=== PATIENT | female | born 1980 | race African-American/Black ===

== ENCOUNTER 2023-09-16 18:03 | Emergency (ER) | payer SELFPAY ==
[2023-09-16 18:09] VITALS: BP 205/121
--- NOTE | 2023-09-16 19:35 | ED.MUSCINJ ---
HPI-Injury
General
Chief Complaint: Musculo-Skeletal Complaint
Source: patient
Exam Limitations: none
Time Seen by Provider: 09/16/23 19:19
History of Present Illness-Injury
Initial Injury comments:
43-year-old female [id number] presents complaining of pain to the right thumb and index finger with occasional pins and needle sensation or stabbing discomfort. She at times feels as though there is a foreign body in her hand. No known
injury. She works as a home health nurse. She denies associated elbow pain. No other complaints at this time.
Phy Exam
Physical Exam
Physical Exam:
General: Well appearing female NAD
HEENT: NC/AT
Musculoskeletal exam: Patient is tender over the thenar eminence of the right thumb and the base of the index finger right hand. No deformity. Good range of motion. Vascular: 2+ radial pulse right wrist
Neurologic exam: Positive Tinel's over the carpal tunnel on the right hand. Good strength to the right hand
Skin: Warm no rash or lesions
Injury Course
Orders/Labs/Results
Orders:
Orders
09/16/23 18:17
Hand, Right 3 View [CR Hand - Right Min 3 Views] Urgent
Comment: pt concerned for foreign body
Reason For Exam: pain in thumb and index finger,
09/16/23 19:50
Electrocardiogram (*1) Urgent
Reason for Study: Other
Other Reason for Exam: HTN
EKG- Treatment ONCE
Complete Blood Count/With Diff Urgent
Comprehensive Metabolic Panel Urgent
MDM/Problems Addressed
Differential Diagnosis Includes:
Right hand pain. She also complains of paresthesias. Consider sprain versus fracture versus carpal tunnel.
X-rays of the right hand ordered through triage are negative for acute fracture or foreign body. Recommend the patient continue to wear her braces for her carpal tunnel. Will refer to ortho for follow up.
*Critical Care Note
Total Time (30-74mins, 75-104mins- exclusive of procedures): Not Applicable
Update Note
Update Note:
Recheck blood pressure is 181/111. Recommended blood work to check kidney functions and EKG. Patient is declining this secondary to the potential cost. She states she cannot afford this test. She will follow-up with her doctor that she has been
seeing and will restart her blood pressure medication that she has been on with them. She wishes to go home at this point. I did also recommend EKG which she declined. I explained and she was aware of the risks of persistently elevated blood
pressure as high as it is for her including risk of stroke disability or . She understood this. Her hand symptoms are more consistent with carpal tunnel syndrome. She will continue wearing her splint
ED Attending Note
-
Portions of this chart may have been created with voice recognition software.� Occasional wrong word or��sound alike� substitutions may have occurred due to the inherent limitations of voice recognition software.
Discharge Plan
Departure
Patient Disposition: Home (Routine Discharge)
Date of Disposition: 09/16/23
Time of Disposition: 20:09
Patient with high blood pressure during this ER visit?: No
Discharge Problem:
Hand pain, right, Hypertension
Instructions: BLOOD PRESSURE
Prescriptions:
New
hydrochlorothiazide 25 mg tablet
25 mg PO DAILY Qty: 30 0RF
amlodipine 5 mg tablet
5 mg PO DAILY Qty: 30 0RF
prednisone 20 mg tablet
40 mg PO DAILY 5 Days Qty: 10 0RF
Referrals:
NONE,* [Family Provider] -
Activity Restrictions/Additional Instructions:
Please follow-up with primary doctor for recheck of your high blood pressure. Return here for any worsening symptoms. Continue to wear a brace for your wrist. A prescription for blood pressure medicine was sent to your pharmacy.
Interventions
Interventions:
*Risk Screen - Suicide Last Done: 09/16/23 19:15
*General Assessment Last Done: 09/16/23 19:15
*Neglect/Abuse Screening Last Done: 09/16/23 19:15
*ED COVID-19 Vaccine History Last Done: 09/16/23 19:15
ED-Musculoskeletal Assessment Last Done: 09/16/23 19:15
Discharge Date and Time
Print Language: DIVEHI
[2023-09-16 19:53] VITALS: BP 181/111
== END 2023-09-16 20:21 | disposition home or self-care (01) ==
LOC: EMR 18:03
PROVIDERS: EMERGENCY PHYSICIAN Emergency Medicine
DX: M79.641 Pain in right hand (principal); I10 Essential (primary) hypertension
CPT/HCPCS: 99283; 73130

== ENCOUNTER 2023-09-30 23:10 | Inpatient (IN) | payer OTHER, SELFPAY ==
[2023-09-30 17:40] VITALS: BP 158/116
--- NOTE | 2023-09-30 18:19 | ED.GENMED ---
History of Present Illness
General
Chief Complaint: Breathing Problem
Source: patient
Exam Limitations: none
Time Seen by Provider: 09/30/23 17:59
History of Present Illness
History of Present Illness:
This is a 43 year old female that comes in with c/o blurred vision and dizziness. States that for the past 4-5 days she has had blurred vision. States that her legs feel sore and it is hard for her to walk. State that she can only walk short
distances. States that her heart rate has also been elevated. States that she has been SOB and she has vomited with the dizziness. Denies any fever, chills, chest pain, abd pain, nausea, diarrhea, headache, urinary burning.
Past History
Past History
ED Past Medical History: HTN; Negative Asthma, Hypercholesterolemia or NIDDM
ED Past Surgical History: None
Social History
Tobacco: Smoker
Alcohol: None
Personal: Single
Living: alone
Review of Systems
Review of Systems
All Other Systems: ROS reviewed and negative except as documented in HPI and ROS
Constitutional: Reports no symptoms; Denies fever or chills
EENT: Reports other (Blurred vision)
Respiratory: Reports trouble breathing; Denies cough
Cardiac: Reports no symptoms; Denies chest pain
ABD/GI: Reports vomiting; Denies abdominal pain, nausea or diarrhea
: Reports no symptoms; Denies dysuria, frequency or urgency
Musculoskeletal: Reports no symptoms
Skin: Reports no symptoms
Neurological: Reports dizzy; Denies headache
Psychiatric: Reports no symptoms
Phy Exam
General Physical Exam
General Presentation: well appearing and no apparent distress
General age: appears stated age
General Skin: warm and dry
General Habitus: obese
General Mental: alert
General Hydration: dry mucous membranes
ENT Exam
ENT Exam: TM's normal, pharynx normal and neck supple
Eye Exam
Eye Exam: EOMI
Cardiovascular Exam
Cardiovascular Exam: regular rate/rhythm, no edema, no murmur and normal peripheral pulses
Pulmonary Exam
Pulmonary Exam: lungs clear, no respiratory distress, no rales, chest non tender, no crackles, no rhonchi, no wheezing and no cough
Gastrointestinal Exam
Gastrointestinal Exam: soft, no organomegaly, no pulsatile mass, non distended, tender (Slight lower abd tenderness with palpation) and other (Hypoactive bowel sounds)
Musculoskeletal Exam
Musculoskeletal Exam: full ROM and no edema
Skin Exam
Skin Exam: normal color, warm/dry, no rash and no petechia
Psychiatric Exam
Psychiatric Exam: normal mood/affect
Course
Orders/Labs/Results
Orders:
Orders
09/30/23
Complete Blood Count/With Diff Urgent
Comprehensive Metabolic Panel Urgent
D-Dimer Urgent
TSH Reflex To Free T4 Urgent
Comment: ADD ON
Troponin I Urgent
09/30/23 Dinner
1800 calorie (15 carb) Diabetic
At Your Request: Full Participation
Does patient need a safe tray?: No
09/30/23 17:43
Electrocardiogram (*1) Urgent
Reason for Study: Shortness of Breath
EKG- Treatment ONCE
09/30/23 18:07
Ondansetron Injectable [Zofran] 4 mg IV NOW STA
09/30/23 18:08
CT Head W/o Iv Contrast Urgent
Comment:
Reason For Exam: blurred vision, dizziness
09/30/23 18:27
Amlodipine [Norvasc] 5 mg PO NOW STA
09/30/23 20:55
METFORMIN HCl [Glucophage] 500 mg PO NOW STA
09/30/23 22:00
Flush (0.9% Sodium Chloride) [Flush (Nss)] See Dose Instructions IV PER PROTOCOL
09/30/23 22:35
Admit/Transfer Patient As Directed
Co-Sign Provider:
Level of Care: Inpatient admission
Assign to:: Medical/Surgical
Physician / Group: ky moore
Diagnosis: new onset dm, pseudohyponatremia
Reason for Hospitalization: new onset dm, pseudohyponatremia
Expected length of stay greater than two midnights?: Yes
ELOS- Estimated Length of Stay in days: 2
I certify the patient meets the requirements for IP care: Yes
Code Status As Directed
Resuscitation Status: Full Code
09/30/23 22:38
Add On- LAB Urgent
Tests Added?: tsh with free t4
PRN Pain Medication Management As Directed
May give lesser potent ordered pain med per pt: Yes
preference::
Protocol:: Medication orders for pain may be administered in a
manner that supports deferring to patient preference
when the pt is:
- Requesting an ordered lesser potent pain medication.
Least to most potent pain medications are defined
as: acetaminophen < NSAID < tramadol < opioids
(morphine, oxycodone, hydromorphone).
- Requesting a lesser dose of the same medication IF
ORDERED.
- Requesting a less intrusive route of administration
if both routes are prescribed by the provider (PO <
IV).
09/30/23 22:48
Urinalysis Reflex To Culture Urgent
Date Specimen was Collected: 09/30/23
Time Specimen was Collected: 22:46
09/30/23 23:56
0.9% Sodium Chloride 1000 ml [Nss] 1,000 ml IV 100 mls/hr
Acetaminophen [Tylenol] 650 mg PO Q4HPRN PRN
Dextrose 50%-Water [Dextrose 50% Syringe] 12.5 grams IV [id number] PRN
Glucagon [GlucaGen] 1 mg IM PRN PRN
Insulin Glargine Lantus [Lantus] 10 units Subcutaneous Insulin Syringe [Syringe-Insulin] 0 unit SC ONCE
09/30/23 23:56
Case Management Consult ONCE
Case Management Consult: Discharge Planning
Comment: pt has no active insurance
Diabetes Education Consult Routine
Reason for Consult: Monitor Instruction
Other reason for consult: insulin instruction
Newly Diagnosed?: Yes
Monitor Needed?: Yes
Activity As Directed
Activity Level: As Tolerated
Bedside Glucose Monitoring As Directed
Frequency: AC&HS
Additional Instructions:: Change to q6h if pt on TPN, tube feeding or not eating
Pneumatic Compression Sleeves As Directed
Type: Knee high
Vital Signs As Directed
Frequency: Per unit guidelines
Pt Eval And Treat Routine
Activity Level: As Tolerated
DX Deep Vein Thrombosis Video Routine
10/01/23 06:00
Complete Blood Count/With Diff IN AM
Comprehensive Metabolic Panel IN AM
Glycohemoglobin (HgbA1c) IN AM
Lipid Profile [Cardiovascular Evaluation] IN AM
10/01/23 07:30
Insulin Aspart Corrective Low [Novolog Flexpen-Low Resistance] See Protocol SC AC
10/01/23 08:00
Amlodipine [Norvasc] 5 mg PO DAILY
Abnormal Lab Results
09/30/23
22:48
Urine Ketones 2+ A
(Negative)
Urine Bilirubin 1+ A
(Negative)
Urine Glucose 3+ A
(Negative)
Vital Signs
Initial and Last Documented VS:
Initial Vital Signs
Temp Pulse Resp BP Pulse Ox
98.7 F 130 18 158/116 97
09/30/23 17:40 09/30/23 17:40 09/30/23 17:40 09/30/23 17:40 09/30/23 17:40
Last Documented Vital Signs
Temp Pulse Resp BP Pulse Ox
98.2 F 119 17 146/96 97
10/01/23 00:06 10/01/23 00:06 10/01/23 00:06 10/01/23 00:06 10/01/23 00:06
MDM/Problems Addressed
Differential Diagnosis Includes:
visual changes due to aging, PE, Hypertension
MDM/Problems Addressed:
This is a 43 year old female that comes in with c/o blurred vision, and her heart rate going up and down. States that she is SOB and can only walk short distances.
Will check labs, Chest x-ray. CT head. Patient only took her HCTZ today and has not taken her Amlodipine. Will have patient take her medication.
back into see patient. Explained that her blood work shows that her sodium is slightly low and her glucose is elevated. Explained that she is most likely diabetic. Will start patient on Metformin and encouraged patient to take both of her BP
medications. Patient BP at this time is 132/74. Patient to also follow up with the eye doctor for evaluation. Patient to return with any concerns.
Patient then tells the nurse that she doesn't have insurance and will not be able to follow up with the PCP. Will admit patient due to Hyperglycemia and Hyponatremia. Patient can then see case management and get into the [facility]
Chronic conditions affecting care: HTN
Acute Exacerbation and/or Progression of Chronic Illness: HTN
*Radiology
Radiology exam reviewed: radiology read reviewed (Ct head-There is a 8mm metallic density within the left paramedian parietal bone, extending to the inner table, with associated streak artifact. The adjacent soft tissues appears unremarkable,
favoring chronic process. Otherwise, no evidence of acute intracranial abnormality. )
*Pulse Oximetry
Patient hypoxic: no
*EKG
Interpreted by ED Provider?: Yes
Heart Rate: 120
Rate: tachycardiac
Rhythm: sinus tachycardia
[place]: left axis deviation
Interval: normal interval
QRS Pattern: normal QRS
Ischemia: no ischemia
*Demi Chef Interpretation
Rate: tachycardiac
Heart Rate: 108
Rhythm: sinus tachycardia
*Critical Care Note
Total Time (30-74mins, 75-104mins- exclusive of procedures): Not Applicable
ED Attending Note
-
Portions of this chart may have been created with voice recognition software.� Occasional wrong word or��sound alike� substitutions may have occurred due to the inherent limitations of voice recognition software.
Discharge Plan
Departure
Patient Disposition: Admit
Date of Disposition: 09/30/23
Time of Disposition: 20:57
Admit to: Med/Surg
Presentation/result/management discussed w/ accepting MD/DO: Hospitalist
Patient with high blood pressure during this ER visit?: Yes
Condition: Good
Covid-19: Not Applicable
Discharge Problem:
Acute hyperglycemia, Acute hyponatremia, New Onset diabetes
Interventions
Interventions:
*Risk Screen - Suicide Last Done: 10/01/23 00:07
*General Assessment Last Done: 09/30/23 17:40
*Neglect/Abuse Screening Last Done: 10/01/23 00:07
ED- Fall Risk Assessment Last Done: 09/30/23 18:07
*ED COVID-19 Vaccine History Last Done: 09/30/23 17:40
*Nursing Disposition Last Done: 10/01/23 00:07
ED- Cardiac Assessment Last Done: 09/30/23 18:07
ED- Pulmonary Assessment Last Done: 09/30/23 18:07
Discharge Date and Time
Discharge Date/Time: 10/01/23 00:07
[2023-09-30 18:53] LABS: % Basophils 0.2 % (0-2); % Eosinophils 1.2 % (0-6); % Immature Granulocytes 0.8 % (0-0.5); % Monocytes 8.9 % (1.7-9.3); % Neutrophils 63.9 % (42.2-75.2); Absolute Eosinophils 0.1 10^3/uL (0-0.7); Absolute Immature Granulocytes 0.1 10^3/uL (0-0.05); Absolute Lymphocytes 2.5 10^3/uL (1.2-3.4); Absolute Monocytes 0.9 10^3/uL (0.1-0.6); Absolute Neutrophils 6.4 10^3/uL (1.4-6.5); Hematocrit 39.5 % (37.0-47.0); Hemoglobin 14.5 g/dL (12.0-16.0); Mean Corp Hgb Conc. 36.7 g/dL (33.0-37.0); Mean Corpuscular Hgb 30.4 pg (27.0-31.0); Mean Corpuscular Volume 82.8 fL (81.0-99.0); Mean Platelet Volume 9.4 fL (7.4-10.4); Nucleated Red Blood Cells % 0 %; Platelet Count 437 10^3/uL (130-400); Red Blood Cell Count 4.77 10^6/uL (4.20-5.40); Red Cell Dist. Width 11.9 % (11.5-14.5); White Blood Cell Count 10.1 10^3/uL (4.8-10.8)
[2023-09-30] MEDS: NORVASC 5 MG PO (19:00)
[2023-09-30] MEDS: ZOFRAN 4 MG IV (19:00)
[2023-09-30 19:02] VITALS: BP 150/91
[2023-09-30 19:06] LABS: ALT (SGPT) 18 U/L (0-35); AST (SGOT) 15 U/L (14-36); Albumin 4.3 g/dl (3.5-5.0); Alkaline Phosphatase 121 U/L (38-126); Blood Urea Nitrogen 20 mg/dl (7-17); Calcium 10.3 mg/dl (8.4-10.2); Carbon Dioxide 24 mmol/L (22-30); Chloride 96 mmol/L (98-107); Glucose 333 mg/dl (70-99); Potassium 3.7 mmol/L (3.5-5.1); Sodium 129 mmol/L (135-145); Total Bilirubin 0.5 mg/dl (0.2-1.3); eGFR > 60.00
[2023-09-30 19:09] LABS: D-Dimer < 0.27 ug/mlFEU (0.00-0.50)
[2023-09-30 19:18] LABS: Troponin I < 0.012 ng/ml
[2023-09-30 20:00] VITALS: BP 132/74
[2023-09-30 21:00] VITALS: BP 127/91
[2023-09-30] MEDS: GLUCOPHAGE 500 MG PO (21:07)
--- NOTE | 2023-09-30 22:04 | HPS.HSE ---
Family Physician
-
Family Physician: * NONE
Chief Complaint
-
Dizziness, blurred vision, nausea
History of Present Illness
43-year-old female complaining of blurred vision with dizziness over the past 4 to 5 days and difficulty walking. She also feels short of breath nauseous and has vomited. She denies fever, chills, chest pain, palpitations, abdominal pain,
diarrhea, urinary symptoms. Patient reports she drinks lots of soda during the day. She did recently take 40 mg prednisone daily x 5 days from 09/15 to 09/21/2023 for right hand pain mother is complications of diabetes, CVA Sister also
history with diabetes she is past medical history of hypertension, active smoker, obesity.
Medical History
Past Medical History
Past Medical History: Reports Other
Additional Past Medical History:
Hypertension
Nicotine abuse
Obesity
Past Surgical History: Reports None
Social History
Tobacco: Smoker
Alcohol: Occasional
Drug: None
Personal: Single
Living: With Roomate
Employment: Employed (Healthcare aide)
Family History
Family History: Other (Mother DM2, CVA, HTN, sister living history DM2)
Allergies / Home Medications
Allergies reflects when Allergies were last updated in [employer].
Home Medications with original date entered in [employer]
Allergy/Medication List:
Allergies
Allergy/AdvReac Type Severity Reaction Status Date / Time
cat dander Allergy Itching Verified 09/30/23 17:43
Home Medications
amlodipine 5 mg tablet 5 mg PO DAILY #30 tabs 09/16/23
hydrochlorothiazide 25 mg tablet 25 mg PO DAILY #30 tabs 09/16/23
Review of Systems
-
History Source: Patient
A 12 point ROS was completed and negative except as noted: Yes
Constitutional: Denies Fever or Chills
EENT: Reports Other (Blurred vision); Denies Sore Throat
Respiratory: Denies Cough or Trouble Breathing
Cardiac: Denies Chest Pain, Diaphoresis, Palpitations or Syncope
Abdomen/GI: Reports Nausea; Denies Abdominal Pain, Vomiting, Diarrhea, Constipated, Bloody Stools or Black Stools
: Denies Dysuria, Frequency, Flank Pain, Incontinence, Difficulty Voiding or Urgency
Musculoskeletal: Denies Joint Pain or Edema
Skin: Denies Itching or Rash
Neurological: Reports Dizzy; Denies Headache or Weakness
Endocrine: Reports No Symptoms
Hematologic/Lymphatic: Reports No Symptoms
Psych: Reports Calm
Physical Exam
Vital Signs
Vital Signs
Temp Pulse Resp BP Pulse Ox
98.7 F 108 18 127/91 98
09/30/23 17:40 09/30/23 21:00 09/30/23 17:40 09/30/23 21:00 09/30/23 21:00
Physical Exam
General: Comfortable and Conversant; No Pain, Fever or Chills
HEENT: NormoCephalic, Anicteric, Moist mucous membranes, PERRLA, Keo Conjunctivae and No Ptosis
Respiratory: Clear; No Wheezes, Rales or Rhonchi
Cardiac: S1/S2 and Regular Rhythm; No Murmur, Rub, Gallop or Peripheral Edema
Breast: Deferred by me
GI: Soft, Non Tender, Non Distended, Normal Bowel Sounds and No Hepatosplenomegaly
Rectal: Deferred by Provider
Genito-urinary: Deferred by me
Musculoskeletal: No Clubbing, No Cyanosis and No Edema
Skin: Warm and Dry; No Rash
Neuro: AO x 3, No Motor Deficits, Nonfocal/grossly intact, Cranial Nerves Intact and No Sensory Deficits; No Slurred Speech, Facial Droop or Tremors
Psych: Calm
Laboratory Results
-
09/30/23 Unknown
09/30/23 Unknown
Laboratory Results
Total Bilirubin 0.5 mg/dl (0.2-1.3) 09/30/23 Unknown
AST 15 U/L (14-36) 09/30/23 Unknown
ALT 18 U/L (0-35) 09/30/23 Unknown
Alkaline Phosphatase 121 U/L (38-126) 09/30/23 Unknown
Troponin I < 0.012 ng/ml 09/30/23 Unknown
Data Reviewed
-
Lab Data: Labs Reviewed by me
Impression/Plan
-
Impression/plan:
Admit to MedSurg
#New onset DM2 symptomatic
Symptoms of dizziness, blurred vision and nausea 4 to 5 days
BS 333
pt given Metformin 500 mg in Er
-IV NSS 100 cc/hr , given 1 liter in ER
-Accu-Cheks with SSI, check HgbA1c
-Consult elementary educator
-Patient counseled on diabetic diet does not have insurance but advised where to get cheap glucose monitor
-Will give 10 units Lantus subcu now
-Patient will need to discuss with case management prices regarding different types of insulin due to no insurance
#Pseudohyponatremia in setting of hyperglycemia
NA 129
Will follow BMP as glucose is corrected
- check tsh with free t4
-IV NSS
#Sinus tachycardia secondary to hyperglycemia/volume depletion
EKG sinus tach 120 bpm, QTc 463 MS
#HTN�benign
BP 127/91
-Continue amlodipine 5 mg daily
-Hold HCTZ 25 mg daily
#Obesity due to excess calorie consumption
Weight loss recommended
1800 ADA diabetic diet
DVT prophylaxis
SCDs
Full code
[2023-09-30 22:56] LABS: Urine Albumin Trace (Neg - Trace); Urine Bilirubin 1+ (Negative); Urine Character Slightly Cloudy (Clear); Urine Color Yellow; Urine Glucose 3+ (Negative); Urine Ketone 2+ (Negative); Urine Leukocyte Negative (Negative); Urine Nitrite Negative (Negative); Urine Occult Blood Negative (Negative); Urine Urobilinogen Negative (Neg - 1+)
--- NOTE | 2023-09-30 22:56 | W.PN.UPDATE ---
Update Note
Progress Note Update
I saw and examined the patient.
The SENIOR LINUX UNIX ADMINISTRATOR's (Guera Bradley) note was reviewed and I agree with the note with additions as below:
This is a 43yo F with PMH HTN, Tobacco Abuse, Obesity who presents to ER with complaint of blurred vision, dizziness, nausea and intermittent vomitting. Endorses mild increase in thirst and relatively chronic urinary frequency. Pt also notes
neuropathic pain to b/l lower extremities. Otherwise denies fever, chills, chest pain, palps, wheezing, cough, sob, abd pain, n/v/d,c dysuria, calf or leg pain.
ER course: Pt presents HR 114, BP 127/91 other V.S.S. Na 129, BUN/Cr 20/1.0, BG 333, LFTs wnl, TSH pending. Trop <0.012, Dimer wnl. CT brain: 8 mm metallic density within the left paramedian parietal bone, extending to the inner table, with
associated streak artifact. The adjacent soft tissues appears unremarkable, favoring chronic process. Otherwise, no evidence of acute intracranial abnormality. S/P metformin 500mg PO, 4mg IV zofran, and Amlodipine 5mg in ER. Pt reporting lack of
insurance thus admission for diabetic specialist. S/P 10mg Lantus with SSI/accuchecks initiated.
SHx: skin lesion resection as a child
SocHx: 1/2 PPD smoker x 20 yrs, Denies etoh/drug use
FHx: Sister with DM. mother wtih DM and CVA
Physical Exam
Gen: Awake and Alert, Answering questions without difficulty
HEENT: NC/AT, MMM, Neck supple
Cardio: +tachy, regular, +S1/S2, No m/r/g
Pulm: CTA b/l, no w/r/r
GI: obese, soft/nt/nd, +BS
: No Pérez, No CVA tenderness
MSK/EXT: all 4 extremeties present. No LE edema.
Neuro: Pupils 3mm equal and reactive. Tongue midline. Limited peripheral vision b/l,symmetric. Unable to read paperwork 2.5 feet away. MSK 5/5 throughout. No sensation deficits of LE noted.
Psych: Pleasant, Normal affect
A/P:
New Onset DM2
- BG 333 on admission. Symptoms of nausea, vomitting, blurred vision, neuropathy, mild increased thirst, dizziness
- Check A1C
- Ordered 10 u Lantus tonight. SSI/accuchecks
- S/P Metformin 500mg in ER. Continue BID
- Continue IVF
- Case Management consult, Pt has no insurance. DM nurse educator consult.
Hyponatremia
- Na 129 on admission. Largely wnl correcting for pseudohyponatremia
- HCTZ held. Check TSH
- Continue IVF and trend.
Sinus Tachycardia
- Likely in setting of volume depletion. Dimer wnl. Trop wnl.
- ST @ 120bpm, No acute ischemic changes, QTC 463ms.
- Continue IVF and trend for improvement.
HTN - Mildly hypertensive on admission. S/P 5mg Amlodipine daily, will continue. Holdin HCTZ in setting of hyponatremia also noting hyperglycemia side effect.
Obesity - Obtain Height/Wt for appropriate BMI calculation. Continue to encourage wt loss.
Tobacco Abuse - 1/2 PPD smoker x 20 yrs, declines nicotine patch at this time. Cessation enouraged.
Diet: Diabetic
DVT PPx: SCDs
Code Status: Full
[2023-09-30 23:46] LABS: TSH Reflex To Free T4 1.01 uIU/ml (0.47-4.68)
[2023-10-01 00:06] VITALS: BP 146/96; BMI 40.5
[2023-10-01 00:22] LABS: Glucose - Point of Care 347 mg/dl (70-99)
[2023-10-01] MEDS: LANTUS 0.1 UNITS SC (00:36)
[2023-10-01] MEDS: NSS 1000 IV ×3 (00:37→20:10)
--- NOTE | 2023-10-01 01:44 | PTCARENOTE ---
Pt received from KIM NOBLES able to make her needs known. Pt educated about insulin lantus & side effects. Blood sugar checks.Pt oriented to room & call musa in reach.Plan of care continued.
[2023-10-01 07:13] LABS: % Basophils 0.3 % (0-2); % Eosinophils 1.7 % (0-6); % Lymphocytes 26.3 % (20.5-51.1); % Monocytes 8.8 % (1.7-9.3); % Neutrophils 61.9 % (42.2-75.2); Absolute Eosinophils 0.2 10^3/uL (0-0.7); Absolute Immature Granulocytes 0.1 10^3/uL (0-0.05); Absolute Lymphocytes 2.9 10^3/uL (1.2-3.4); Absolute Neutrophils 6.8 10^3/uL (1.4-6.5); Hematocrit 38.2 % (37.0-47.0); Hemoglobin 13.8 g/dL (12.0-16.0); Mean Corp Hgb Conc. 36.1 g/dL (33.0-37.0); Mean Corpuscular Hgb 30.7 pg (27.0-31.0); Mean Corpuscular Volume 84.9 fL (81.0-99.0); Nucleated Red Blood Cells % 0 %
[2023-10-01 07:17] LABS: ALT (SGPT) 15 U/L (0-35); AST (SGOT) 14 U/L (14-36); Albumin 3.9 g/dl (3.5-5.0); Alkaline Phosphatase 104 U/L (38-126); Blood Urea Nitrogen 22 mg/dl (7-17); Calcium 9.3 mg/dl (8.4-10.2); Carbon Dioxide 22 mmol/L (22-30); Chloride 96 mmol/L (98-107); Estimated Creatinine Clearance 86 ml/min; Glucose 352 mg/dl (70-99); HDL Cholesterol 44 mg/dl; LDL Cholesterol, Calculated 203 mg/dl; Potassium 3.8 mmol/L (3.5-5.1); Sodium 129 mmol/L (135-145); Total Bilirubin 0.5 mg/dl (0.2-1.3); Total Cholesterol 310 mg/dl (50-199); Total Protein 6.4 g/dl (6.3-8.2); Triglyceride 315 mg/dl (10-149); Very Low Density Lipoprotein 63 mg/dl (0-30); eGFR > 60.00
--- NOTE | 2023-10-01 07:31 | W.PN.HOSP.TC ---
Addendum entered and electronically signed by Denys Kiser MD 10/01/23 12:33:
new onset DMType II
-a1c 12.2
-started short acting and long actinging insulin
-accuchecks
-ssi
-cc diet
-insulin teaching
-dm education
-pcp follow up
- - resources provided to follow up at - [facility]
-Pod f/u
-Opthal f/u
Blurry vision
-Likely realted to hyperglycemia
-Expect to continue to improve
-Ophthalmology rec outpatient follow up within the next 1 week
-Rec not to drive or operate heavy machinery until cleared/seen by ophthalmology.
Original Note:
Today's Communication/Plan
-
Patient started on new diabetes and hyperlipidemia medication. Continue monitoring for improvement in symptoms and discharge after diabetes education is complete
Assessment / Plan
Assessment / Plan
Assessment:
43yo F with a history of HTN, Tobacco Abuse, and Obesity presented to the ER with complaint of blurry vision, dizziness, nausea and intermitting vomiting. Patient was admitted for treatment of her new onset DM2 and was started on insulin and
metformin.
Plan:
New onset DM2 symptomatic
-Patient has had Dizziness, blurred vision and nausea for 4 to 5 days
-Blood Glucose (333 -> 352)
-patient was given Metformin 500 mg in the ED
-Started on Metformin 1000mg BID
-IV NSS 100 cc/hr was started, and 1 liter was given in ER
-Continue with Accu-Cheks with SSI, HgbA1c 12.2
-Patient counseled on diabetic diet does not have insurance but advised where to get cheap glucose monitor
-Lantus 10 units subcu given in ED
-Patient will need to discuss with case management prices regarding different types of insulin due to no insurance
-Follow up with PCP after discharge (Patient has no insurance, given information about [facility])
-Patient given instructions to see Machine Tool Designer and Opthalmologist as outpatient within the week.
Hyponatremia
-Na 129
-Will follow BMP as glucose is corrected
-HCTZ held for now
-check tsh with free t4
-IV NSS
Sinus tachycardia secondary to hyperglycemia/volume depletion
-Rehydrate with IV Fluids
-EKG sinus tach 120 bpm, QTc 463 MS
-Continue monitoring
Hyperlipidemia
-Start patient on high intensity statin
-Atorvastatin 40mg a day
Right thumb/index neuropathy
- Hand X-ray (09/15)- unremarkable
- Steroid therapy did not improve symptoms
- Possibly due to hyperglycemia induced neuropathy
Hypertension
-Continue amlodipine 5 mg daily
-Hold HCTZ 25 mg daily, possibly contributing to hyperglycemia
Obesity due to excess calorie consumption
-Weight loss recommended
-1800 ADA diabetic diet
Tobacco Abuse-
-1/2 pack smoker for 20 years, does not want nicotine patch. Talked about cessation but patient not interested.
DVT prophylaxis
SCDs
Full code
Anticipated Discharge: Today
Subjective/Interval History
-
Date of Service: October 01, 2023
Patient has been feeling better, says her blurry vision has been improving. Patient still has pain in her right thumb and index finger.
Objective Data
-
Labs:
Laboratory Results
10/01/23
06:05
WBC 11.0 H
Hgb 13.8
Hct 38.2
Plt Count
Sodium 129 L
Potassium 3.8
Chloride 96 L
Carbon Dioxide 22
BUN 22 H
Creatinine 1.0
Glucose 352 H
Calcium 9.3
Total Bilirubin 0.5
AST 14
ALT 15
Alkaline Phosphatase 104
Vital Signs:
Vital Signs
Temp Pulse Resp BP Pulse Ox
98.2 F 119 17 146/96 97
10/01/23 00:06 10/01/23 00:06 10/01/23 00:06 10/01/23 00:06 10/01/23 00:06
Review of Systems
-
History Source: Patient
Constitutional: Denies Fever, No Appetite or Fatigue
EENT: Reports Blurry Vision
Respiratory: Denies Cough, Trouble Breathing or Wheezing
Cardiac: Denies Chest Pain, Diaphoresis, Palpitations or Syncope
Abdomen/GI: Denies Abdominal Pain, Nausea or Vomiting
Musculoskeletal: Reports Joint Pain (Right index finger + right thumb with occasional pins and needle sensation)
Endocrine: Denies Polyuria, Polydipsia or Excessive Thirst
Physical Exam
-
General: Well Developed, Well Nourished, No Apparent Distress, Comfortable and Conversant
Respiratory: Clear to Auscultation and Non Labored Respirations
Cardiac: Regular Rhythm and S1/S2
GI: Soft, Nontender and Nondistended
Musculoskeletal: No Clubbing, No Cyanosis, No Edema and Other (Tender right index and thumb, Good RoM)
Skin: Warm and Dry
Neuro: Awake, Alert, Oriented and AO x 3
Data Reviewed
-
Labs: Labs Reviewed by me, Discussed with Physician and Discussed with Patient
[2023-10-01 07:55] VITALS: BP 131/82
[2023-10-01 07:56] LABS: Glucose - Point of Care 279 mg/dl (70-99)
[2023-10-01] MEDS: NORVASC 5 MG PO (08:24)
[2023-10-01] MEDS: GLUCOPHAGE 1000 MG PO ×2 (08:24→17:53)
[2023-10-01] MEDS: NOVOLOG FLEXPEN-LOW RESISTANCE 3 UNITS SC ×2 (08:25→11:53)
[2023-10-01] MEDS: NOVOLOG FLEXPEN 4 UNITS SC ×3 (08:26→17:53)
[2023-10-01 08:59] LABS: Glycohemoglobin (HgbA1c) 12.2 % (4.0-5.6)
[2023-10-01 09:57] VITALS: BP 139/91; BP 144/91; PULSE 107
--- NOTE | 2023-10-01 11:23 | W.DCSUMMARY ---
Addendum entered and electronically signed by Denys Kiser MD 10/01/23 12:34:
new onset DMType II
-a1c 12.2
-started short acting and long actinging insulin
-accuchecks
-ssi
-cc diet
-insulin teaching
-dm education
-pcp follow up
- - resources provided to follow up at - [facility]
-Pod f/u
-Opthal f/u
Blurry vision
-Likely realted to hyperglycemia
-Expect to continue to improve
-Ophthalmology rec outpatient follow up within the next 1 week
-Rec not to drive or operate heavy machinery until cleared/seen by ophthalmology.
Original Note:
Documented by User: Bishop Montemayor MD, Resident 10/01/23 12:07
Discharge Summary
Discharge Data
Date of Admission: 09/30/23
Date of Discharge: 10/01/23
-
Pending Results: No
Hospital Course
Admission Diagnosis-
New Onset Diabetes Mellitus II
Conditions prior to Admission-
Hypertension
Nicotine Abuse
Obesity
Hospital Course-
43y F with a history of hypertension, nicotine abuse, and obesity came to the ED on 09/29 complaining of blurry vision and dizziness for the past few days. Patient reported having trouble walking and continued pain/discomfort in the right thumb and
index finger. Patient also complained of feeling short of breath, nausea, and some vomiting. Patient denied any fever, chills, chest pain, palpitations, abdominal pain, diarrhea, or urinary symptoms. Patient was suspected to have new onset diabetes
mellitus II as her blood sugars were measured to be 333 in the ED. Patient was given Metformin 500mg in the ED along with 1 liter of IV NSS 100cc/hr. Accu-checks were continued with sliding scale insulin as needed. Patient was counseled on diabetic
diet and a pick up man was consulted. Patient does not have insurance but was advised where she could get a cheap glucose monitor. Patient was also given 10 units of Lantus at this time. Because of her lack of insurance, case management talked
to the patient regarding prices of different types of insulin. Patient also had pseudohyponatremia due to her hyperglycemia, along with sinus tachycardia at 120 bpm.
Patient's condition improved with medication and she reported that her blurry vision also seemed to start resolving. Patient was started on Metformin 1000mg BIP as well as Atorvastatin 40mg daily. For her hypertension, her HCTZ was discontinued for
the duration of the stay but she continued to be on Amlodipine 5mg. Patient was counseled on following up with a PCP as she does not currently have one. Patient has no insurance so was given information about free clinics she can go to for medical
care. Also given information by rn field case manager for how to get glucometer and lancets/strips without insurance. Patient also asked to go see Educational Specialist and Impregnator Helper within the week.
Discharge Plan
-
Patient Disposition: Home (Routine Discharge)
Discharge Diagnosis/Procedures: New Onset Diabetes Mellitus II
Diet: Low Cholesterol and Diabetic, Carb Controlled
Activity: No restrictions
Driving Restrictions: As prior to admission
Bathing Restrictions: None
Activity Restrictions/Additional Instructions:
Please follow up with a Educational Specialist and Impregnator Helper (Dr. Head) within the week. Please set up an appointment with PCP within the week.
Referrals:
Vitaly Head MD [Active] - (Office number [phone]. Please set up an appointment within the next week)
Additional Discharge Medication Instructions: Please inject Lantus 12 units at night, Please Inject Novolog 4 units before meals. Take Atorvastatin 40mg daily. Take Metformin 1000mg Twice a day. Measure Blood glucose as instructed in the morning and
before meals.
Prescriptions:
New
metformin 1,000 mg Tablet
1,000 mg PO BID@0800,1700 30 Days Qty: 60 2RF
insulin glargine [Lantus Solostar U-100 Insulin] 100 unit/mL (3 mL) insulin pen
12 unit SC QPM 30 Days Qty: 3.6 2RF
atorvastatin 40 mg Tablet
40 mg PO QPM 30 Days Qty: 30 0RF
insulin aspart U-100 100 unit/mL (3 mL) Insulin Pen
4 unit SC AC 30 Days Qty: 3.6 2RF
(DME) blood-glucose meter [Contour Next EZ Meter] Kit
See Rx Instructions .Route Qty: 1 0RF
Rx Instructions:
As directed
(DME) lancets 25 gauge misc
See Rx Instructions .Route Qty: 100 2RF
Rx Instructions:
As directed
(DME) Contour Next Test Strips Strip
See Rx Instructions .Route Qty: 100 2RF
Rx Instructions:
As directed
Continued
amlodipine 5 mg tablet
5 mg PO DAILY Qty: 30 0RF
Discontinued
hydrochlorothiazide 25 mg tablet
25 mg PO DAILY Qty: 30 0RF
Discharge Orders:
Discharge Patient (As Directed); Ordered 10/01/23
Ordered By: Bishop Montemayor
Discharge Date and Time
Print Language: ICELANDIC

Documented by User: Denys Kiser MD 10/01/23 12:29
Discharge Summary
Discharge Data
Date of Admission: 09/30/23
Date of Discharge: 10/01/23
Discharge Plan
-
Patient Disposition: Home (Routine Discharge)
Discharge Diagnosis/Procedures: New Onset Diabetes Mellitus II
Diet: Low Cholesterol and Diabetic, Carb Controlled
Activity: No restrictions
Driving Restrictions: As prior to admission
Bathing Restrictions: None
Activity Restrictions/Additional Instructions:
Please follow up with a Educational Specialist and Impregnator Helper (Dr. Head) within the week. Please set up an appointment with PCP within the week.
Referrals:
Vitaly Head MD [Active] - (Office number [phone]. Please set up an appointment within the next week)
Additional Discharge Medication Instructions: Please inject Lantus 12 units at night, Please Inject Novolog 4 units before meals. Take Atorvastatin 40mg daily. Take Metformin 1000mg Twice a day. Measure Blood glucose as instructed in the morning and
before meals.
Prescriptions:
New
metformin 1,000 mg Tablet
1,000 mg PO BID@0800,1700 30 Days Qty: 60 2RF
insulin glargine [Lantus Solostar U-100 Insulin] 100 unit/mL (3 mL) insulin pen
12 unit SC QPM 30 Days Qty: 3.6 2RF
atorvastatin 40 mg Tablet
40 mg PO QPM 30 Days Qty: 30 0RF
insulin aspart U-100 100 unit/mL (3 mL) Insulin Pen
4 unit SC AC 30 Days Qty: 3.6 2RF
(DME) blood-glucose meter [Contour Next EZ Meter] Kit
See Rx Instructions .Route Qty: 1 0RF
Rx Instructions:
As directed
(DME) lancets 25 gauge misc
See Rx Instructions .Route Qty: 100 2RF
Rx Instructions:
As directed
(DME) Contour Next Test Strips Strip
See Rx Instructions .Route Qty: 100 2RF
Rx Instructions:
As directed
Continued
amlodipine 5 mg tablet
5 mg PO DAILY Qty: 30 0RF
Discontinued
hydrochlorothiazide 25 mg tablet
25 mg PO DAILY Qty: 30 0RF
Discharge Orders:
Discharge Patient (As Directed); Ordered 10/01/23
Ordered By: Bishop Montemayor
Discharge Date and Time
Print Language: ICELANDIC
--- NOTE | 2023-10-01 11:39 | CHAP ---
Ms Styles was sleepy - said she's doing okay. No needs or concerns. Emotional support provided.
[2023-10-01 11:46] LABS: Glucose - Point of Care 285 mg/dl (70-99)
[2023-10-01 14:24] LABS: Glucose - Point of Care 314 mg/dl (70-99)
[2023-10-01 15:00] VITALS: BP 132/82
--- NOTE | 2023-10-01 15:14 | W.PN.UPDATE ---
Update Note
Progress Note Update
Patient states that she had a small bleb on her gum of right upper premolar, that she poked by accident yesterday and it drained nasty discharge. The bled was there only for yesterday. She is concerned about having insurance, having her lantus
covered, and is requesting if she can stay here till Monday. Told the patient that we can hook her up with her [facility] resources for [facility] resources, and health educator who can teach her on how to use a vial. On physical
examination , <1mm erosion of mucosa on the gum noted. Not significant enough to cause leukocytosis. Will reevaluate her in the am tomorrow, and if leukocytosis trend upwards, will work up for infection source.
--- NOTE | 2023-10-01 17:14 | CM ---
met with patient at bedside.she lives with her fiance in [facility] with no alexx,her bed and kehinde is on the second level,she ambulates I and is I with her adl.she works as a home health aide.patient has no health insurance and no pcp.patient gets her
meds from [facility] in [place].she has never had a vn or been to ip rehab.
Pmh:htn,high cholesterol
patient is adm with new onset diabetes.she was placed on metformin and aspart insulin and lantus insulin pens.i call [facility] and cost of aspart insulin for 140 days is $83.88 and cost of lantus for 125 days is $106.71.patient does not have
money to pay for insulin.pharmacy not able to sell smaller does of insulin pens because they are not able to break up a box.pharmacist suggested novolin r and novolin n vials each costing $25.patient states she can't use vials beacuse she has
difficulty with her vision.patient asked if she could stay until monday when she gets paid.
however,doctor is dc patient tomorrow after she talks to certified diabetes educator [facility]i have also given patient brochure for [facility] and told patient she will have to go to [facility] in [place] for medicaid or apply
on line..patient told me she knew someone that was hospitalized at [facility] and everything was set up for her.plan dc home with no needs after seen by certified diabetes educator and hrsi.
[2023-10-01 17:48] LABS: Glucose - Point of Care 320 mg/dl (70-99)
[2023-10-01] MEDS: NOVOLOG FLEXPEN-LOW RESISTANCE 4 UNITS SC (17:53)
[2023-10-01] MEDS: LIPITOR 40 MG PO (17:53)
--- NOTE | 2023-10-01 17:55 | PTCARENOTE ---
This nurse instructed and demonstrated pt. on how to self administer insulin via pen and then had pt. try to self administer insulin prior to dinner. Pt. unable to give herself the needle, stating, ' I can't do it.' This nurse gave pt. extra support
and encouragement to keep trying. Will pass on to oncoming shift nurse that pt. needs further teaching and support regarding insulin administration.
[2023-10-01 21:51] LABS: Glucose - Point of Care 245 mg/dl (70-99)
[2023-10-01] MEDS: LANTUS 0.12 UNITS SC (22:55)
[2023-10-01 23:40] VITALS: BP 139/83
[2023-10-02] MEDS: NSS 1000 IV (05:18)
--- NOTE | 2023-10-02 07:38 | W.PN.HOSP.TC ---
Addendum entered and electronically signed by Chandni Hanna MD 10/02/23 12:25:
Insulin aspart 4 units AC also added, and can continue
Addendum entered and electronically signed by Chandni Hanna MD 10/02/23 11:08:
Pt seen with resident.
# New onset DM Type II with blurry vision
A1c 12.2 on admission
started with Lantus, currently at 12 units HS, ISS
DM education CS
Outpt airport refueling handler and Opthal f/u
Discharge delayed due to pt's lack in insurance
total DC time 36 min
Original Note:
Today's Communication/Plan
-
Patient to be discharged once she has seen case management and elementary educator
Assessment / Plan
Assessment / Plan
Assessment:
43yo F with a history of HTN, Tobacco Abuse, and Obesity presented to the ER with complaint of blurry vision, dizziness, nausea and intermitting vomiting. Patient was admitted for treatment of her new onset DM2 and was started on insulin and
metformin. Patient to be discharged today after speaking with Case management about her lack of insurance and from where she can procure her medications.
Plan:
New onset DM2 symptomatic
-Patient has had Dizziness, blurred vision and nausea for 4 to 5 days
-Blood Glucose (333 -> 352)
-patient was given Metformin 500 mg in the ED
-Started on Metformin 1000mg BID
-IV NSS 100 cc/hr was started, and 1 liter was given in ER
-Continue with Accu-Cheks with SSI, HgbA1c 12.2
-Patient counseled on diabetic diet does not have insurance but advised where to get cheap glucose monitor
-Lantus 10 units subcu given in ED
-Patient will need to discuss with case management prices regarding different types of insulin due to no insurance
-Follow up with PCP after discharge (Patient has no insurance, given information about [facility])
-Patient given instructions to see Supply Planner and Opthalmologist as outpatient within the week.
-Seeing case supervisor again for more information about how to get medication and PCP
Gum bleed around right upper premolar
-<1mm erosion of mucosa on gum noted
- No leukocytosis, no infection at this time
- no abx indicated at this time
Pseudo-Hyponatremia
-Na 131 today
-Will follow BMP as glucose is corrected
-HCTZ held for now
-check tsh with free t4- Within normal range
-IV NSS
-Resolved
Sinus tachycardia secondary to hyperglycemia/volume depletion
-Rehydrate with IV Fluids
-EKG sinus tach 120 bpm, QTc 463 MS
-Continue monitoring
Hyperlipidemia
-Start patient on high intensity statin
-Atorvastatin 40mg a day
Right thumb/index neuropathy
- Hand X-ray (09/15)- unremarkable
- Steroid therapy did not improve symptoms
- Possibly due to hyperglycemia induced neuropathy
Hypertension
-Continue amlodipine 5 mg daily
-Hold HCTZ 25 mg daily, possibly contributing to hyperglycemia
Obesity due to excess calorie consumption
-Weight loss recommended
-1800 ADA diabetic diet
Tobacco Abuse-
-1/2 pack smoker for 20 years, does not want nicotine patch. Talked about cessation but patient not interested.
DVT prophylaxis
SCDs
Full code
Anticipated Discharge: Today
Subjective/Interval History
-
Date of Service: October 02, 2023
Patient has been feeling better. Her blurry vision has much improved since she has been here. She still pain in her right index finger and thumb.
Objective Data
-
Labs:
Laboratory Results
10/02/23
06:16
WBC Pending
Hgb Pending
Hct Pending
Plt Count Pending
Sodium Pending
Potassium Pending
Chloride Pending
Carbon Dioxide Pending
BUN Pending
Creatinine Pending
Glucose Pending
Calcium Pending
Vital Signs:
Vital Signs
Temp Pulse Resp BP Pulse Ox
98.0 F 105 18 139/83 100
10/01/23 23:40 10/01/23 23:40 10/01/23 23:40 10/01/23 23:40 10/01/23 23:40
I&O
10/01/23 10/02/23 10/03/23
06:59 06:59 06:59
Intake Total 2760 / 2760
Balance 2760 / 2760
Review of Systems
-
History Source: Patient
Constitutional: Denies Fever, No Appetite or Fatigue
Respiratory: Denies Cough, Trouble Breathing or Wheezing
Cardiac: Denies Chest Pain, Diaphoresis, Palpitations or Syncope
Abdomen/GI: Denies Abdominal Pain, Nausea or Vomiting
Musculoskeletal: Reports Other (Pain right index finger and thumb)
Endocrine: Denies Polyuria, Polydipsia, Temp Intolerance or Excessive Thirst
Physical Exam
-
General: Well Developed, Well Nourished, No Apparent Distress and Comfortable
Respiratory: Clear to Auscultation and Non Labored Respirations
Cardiac: Regular Rhythm and S1/S2
GI: Soft, Nontender and Nondistended
Musculoskeletal: No Clubbing, No Cyanosis, No Edema and Other (Pain in right thumb and right index finger)
Skin: Warm and Dry
Neuro: Awake, Alert, Oriented, AO x 3 and No Motor Deficits
Psych: Calm
Data Reviewed
-
Labs: Labs Reviewed by me, Discussed with Physician and Discussed with Patient
[2023-10-02 08:11] VITALS: BP 130/65
[2023-10-02 08:24] LABS: Hematocrit 35.3 % (37.0-47.0); Mean Corp Hgb Conc. 36.8 g/dL (33.0-37.0); Mean Corpuscular Hgb 31.9 pg (27.0-31.0); Mean Corpuscular Volume 86.7 fL (81.0-99.0); Mean Platelet Volume 10.1 fL (7.4-10.4); Platelet Count 345 10^3/uL (130-400); Red Blood Cell Count 4.07 10^6/uL (4.20-5.40)
[2023-10-02 08:36] LABS: Glucose - Point of Care 220 mg/dl (70-99)
[2023-10-02 09:03] LABS: Blood Urea Nitrogen 21 mg/dl (7-17); Calcium 8.7 mg/dl (8.4-10.2); Carbon Dioxide 21 mmol/L (22-30); Chloride 103 mmol/L (98-107); Estimated Creatinine Clearance 96 ml/min; Glucose 212 mg/dl (70-99); Potassium 3.5 mmol/L (3.5-5.1); Sodium 131 mmol/L (135-145); eGFR > 60.00
[2023-10-02] MEDS: NOVOLOG FLEXPEN-LOW RESISTANCE 2 UNITS SC (09:24)
[2023-10-02] MEDS: NORVASC 5 MG PO (09:25)
[2023-10-02] MEDS: GLUCOPHAGE 1000 MG PO ×2 (09:25→16:00)
[2023-10-02] MEDS: NOVOLOG FLEXPEN 4 UNITS SC (09:25)
--- NOTE | 2023-10-02 10:48 | PN.DE.MGMTRT ---
Insulin Management
- -
10/02/2023
43 year old female with PMH of HTN, active smoker and Obesity, presented to the ED with c/o blurred vision with dizziness over the past 4 to 5 days and difficulty walking. Patient reports she drinks lots of soda-3 bottles during the day. Reports
family hx of DM-Mother is from complications of DM and CVA. Sister also has T2DM. Glucose on admission was 335, A1C 12.2%, Cr 1, eGFR >60. Pt was dx with New onset T2DM.
Pt awake, A/O x3, sitting up in bed, able to discuss diabetes mgt.
Pt was started on basal bolus insulin with Metformin.
Glucose remains elevated, premeal range 285 to 320. Received Lantus 12 units @ HS, fasting glucose 212 this AM.
Pt reports that she has no insurance and can not afford insulin out of pocket. Had a lengthy discussion wit pt regarding options for management.
States she lives on a tight budget and will not be able to afford two different kinds of insulin, she is willing to try taking Lantus @ HS, Metformin and Glipizide.
Will start Glipizide 10mg BID, 1st dose NOW. Increase Lantus to 18 units and cont Metformin 1000mg BID.
Glucose monitor instructions for- Contour Next provided. Insulin instructions provided as well.
Due to limitations of affordability and cost, advised pt to obtain OTC [employer] glucose monitor.
Encouraged pt to call [facility] to register for free care.
Discussed diabetes mgt with Hospitalist Dr. Hanna and expressed concern for ongoing uncontrolled blood sugars.
Diabetes History
- -
Type of Diabetes: 2 requiring insulin
Pre-Admission Diabetes Regimen
10/02/23
06:16
Creatinine 0.9
Lab Results
Hemoglobin A1c 12.2 % (4.0-5.6) H 10/01/23 06:05
Insulin Pump Settings
IP Diabetes Regimen
10/01/23 10/01/23 10/01/23
11:44 14:23 17:47
Glucose
POC Glucose 285 H 314 H 320 H
10/01/23 10/02/23 10/02/23
21:49 06:16 08:25
Glucose 212 H
POC Glucose 245 H 220 H
Meal type: Breakfast
Meal type: Dinner
Meal type: Lunch
Amount consumed: Patient refused
Amount consumed: 60%
Amount consumed: 95%
Patient Education
[2023-10-02 11:56] LABS: Glucose - Point of Care 183 mg/dl (70-99)
--- NOTE | 2023-10-02 12:51 | W.DCSUMMARY ---
Discharge Summary
Discharge Data
Date of Admission: 09/30/23
Date of Discharge: 10/02/23
-
Pending Results: No
Hospital Course
43y F with a history of hypertension, nicotine abuse, and obesity came to the ED on 09/29 complaining of blurry vision and dizziness for the past few days. Patient reported having trouble walking and continued pain/discomfort in the right thumb and
index finger. Patient also complained of feeling short of breath, nausea, and some vomiting. Patient denied any fever, chills, chest pain, palpitations, abdominal pain, diarrhea, or urinary symptoms. Patient was suspected to have new onset diabetes
mellitus II as her blood sugars were measured to be 333 in the ED. Patient was given Metformin 500mg in the ED along with 1 liter of IV NSS 100cc/hr. Accu-checks were continued with sliding scale insulin as needed. Patient was counseled on diabetic
diet and a criminal justice professor was consulted. Patient does not have insurance but was advised where she could get a cheap glucose monitor. Patient was also given 10 units of Lantus at this time. Because of her lack of insurance, case management talked
to the patient regarding prices of different types of insulin. Patient also had pseudohyponatremia due to her hyperglycemia, along with sinus tachycardia at 120 bpm.
Patient's condition improved with medication and she reported that her blurry vision also seemed to start resolving. Patient was started on Metformin 1000mg BIP as well as Atorvastatin 40mg daily. For her hypertension, her HCTZ was discontinued for
the duration of the stay but she continued to be on Amlodipine 5mg. Patient was counseled on following up with a PCP as she does not currently have one. Patient has no insurance so was given information about free clinics she can go to for medical
care. Also given information by correctional casework specialist for how to get glucometer and lancets/strips without insurance. Patient also asked to go see Truck Assembler and Political Organizer within the week. Patient stayed at the hospital through 09/30 as she wanted
further education about Diabetes by the educator nurse. Patient's condition continued to improve through 10/01 and her blurry vision had started to resolve even more. Patient was able to get education from Curator [employer]icultural [employer] Nurse and case management
about the free clinic at the hospital. Patient also received information about how she can get insurance provided to her with the help of the hospital so that she can afford her insulin treatment. Patient discharged with instructions to complete her
paperwork, continue management of her diabetes through medications that she can afford like long acting Lantus and Oral Metformin and Oral Glipizide. Patient also counseled to follow up with Truck Assembler and Opthalmologist.
Discharge Plan
-
Patient Disposition: Home (Routine Discharge)
Discharge Diagnosis/Procedures: New Onset Diabetes Mellitus II
Condition: Fair
Diet: Low Cholesterol and Diabetic, Carb Controlled
Activity: No restrictions
Driving Restrictions: No Driving Unitl Seen by Opthalmologist
Bathing Restrictions: None
Activity Restrictions/Additional Instructions:
Please follow up with a Truck Assembler and Political Organizer (Dr. Head) within the week. Please set up an appointment with PCP within the week.
Referrals:
Vitaly Head MD [Active] - (Office number [phone]. Please set up an appointment within the next week)
Additional Discharge Medication Instructions: Please inject Lantus 18 units at night
Take Metformin 1000mg Twice a day.
Take Glipizide 10mg Twice a Day.
Please finish paper work for insurance so you can be started on regular insulin therapy. Please see PCP afterwards along with Truck Assembler and Opthalmologist
Measure Blood glucose as instructed in the morning and before meals.
Take Atorvastatin 40mg daily.
Prescriptions:
New
metformin 1,000 mg Tablet
1,000 mg PO BID@0800,1700 30 Days Qty: 60 2RF
atorvastatin 40 mg Tablet
40 mg PO QPM 30 Days Qty: 30 0RF
insulin aspart U-100 100 unit/mL (3 mL) Insulin Pen
4 unit SC AC 30 Days Qty: 3.6 2RF
(DME) blood-glucose meter [Contour Next EZ Meter] Kit
See Rx Instructions .Route Qty: 1 0RF
Rx Instructions:
As directed
(DME) lancets 25 gauge misc
See Rx Instructions .Route Qty: 100 2RF
Rx Instructions:
As directed
(DME) Contour Next Test Strips Strip
See Rx Instructions .Route Qty: 100 2RF
Rx Instructions:
As directed
glipizide 10 mg tablet
10 mg PO BID 30 Days Qty: 60 2RF
insulin glargine [Lantus Solostar U-100 Insulin] 100 unit/mL (3 mL) insulin pen
18 unit SC QPM 30 Days Qty: 5.4 2RF
Continued
amlodipine 5 mg tablet
5 mg PO DAILY Qty: 30 0RF
Discontinued
hydrochlorothiazide 25 mg tablet
25 mg PO DAILY Qty: 30 0RF
Discharge Orders:
Discharge Patient (As Directed); Ordered 10/02/23
Ordered By: Chandni Hanna
Discharge Date and Time
Print Language: [place]
[2023-10-02] MEDS: NOVOLOG FLEXPEN-LOW RESISTANCE 1 UNITS SC (13:56)
[2023-10-02] MEDS: GLUCOTROL 10 MG PO ×2 (13:57→16:00)
[2023-10-02] MEDS: NOVOLOG FLEXPEN SC (14:02)
--- NOTE | 2023-10-02 14:23 | PN.DE ---
Diabetes Education
- -
Diabetes Education-
This is a 43 year old female with new T2DM diagnosis, A1C of 12.2%
Met with Ms. Styles at bedside for monitor and insulin instructions. Patient reports she drinks lots of soda-3 bottles during the day. Reports family hx of DM-Mother is from complications of DM and CVA. Sister also has T2DM.
Pt reports that she has no insurance and can not afford insulin out of pocket. Had a lengthy discussion with pt regarding options for management.
States she lives on a tight budget and will not be able to afford two different kinds of insulin, she is willing to try taking Lantus @ HS, Metformin and Glipizide.
Due to limitations of affordability and cost, advised pt to obtain OTC [employer]ly[employer] brand ReliOn glucose monitor as well. Encouraged pt to call [facility] to register for free care.
She has been provided with the Contour Next Ez glucometer. Reviewed proper testing technique for obtaining a blood glucose, new testing pattern given BID and expected results as noted in take home education booklet. Discussed action of long acting
insulins as well as symptoms and treatment of hypoglycemia. Aware to check blood glucose upon waking and at bedtime and to inject long acting insulin in the abdomen or outer thigh, rotating sites. Aware to store insulin pens that are not in use in
the refrigerator. Instructions with good return demonstration using the glucometer and insulin pen were noted and result of 186 mg/dl before lunch.
Discussed importance of checking blood sugars 2x/day to assess food/medication effect on her BS, reducing soda consumption and CHO intake, being active and losing weight. Provided information and handout on outpt education classes. Will need RX for
test strips and lancets for the Contour Next Ez glucometer, testing 2x/day, Lantus as well as pen needles at discharge.
All questions and concerns were addressed and answered to her satisfaction.
All above discussed with Hospitalist, caser shoe parts and pt's nurse.
--- NOTE | 2023-10-02 14:58 | CM ---
Spoke with Elidia from [facility] Pt has no insurance .Elidia said pt was given information on documents needed to apply for MA.
CM had MD complete and signed Health Sustaining medication assessment form . Form faxed to [facility] office to send with MA maryjane.
DM educator spoke with pt and CM. She said pt will need to get [employer] glucose monitor and stay on oral meds for DM .
Pt given [facility] application to complete and if accepted to be her PCP.
Boyfriend to drive her home.
PLAN Home . Pt to apply to [facility] and complete MA application
[2023-10-02 15:20] LABS: Glucose - Point of Care 276 mg/dl (70-99)
[2023-10-02 15:42] VITALS: BP 126/70
== END 2023-10-02 17:15 | disposition home or self-care (01) | DRG 638 ==
LOC: 4 EAST ACU 23:10
PROVIDERS: Clinical Nurse Specialist Family Health; Student in an Organized Health Care Education/Training Program; ADMITTING PHYSICIAN Internal Medicine; ATTENDING PHYSICIAN Internal Medicine; CONSULT PHYSICIAN Nurse Practitioner Acute Care; EMERGENCY PHYSICIAN Emergency Medicine
DX: E11.65 Type 2 diabetes mellitus with hyperglycemia (principal); Z68.41 Body mass index [BMI] 40.0-44.9, adult; E66.09 Other obesity due to excess calories; I10 Essential (primary) hypertension; E86.9 Volume depletion, unspecified; F17.200 Nicotine dependence, unspecified, uncomplicated; Z59.7 Insufficient social insurance and welfare support; Z79.899 Other long term (current) drug therapy; Z83.3 Family history of diabetes mellitus; Z82.49 Family history of ischemic heart disease and other diseases of the circulatory system
CPT/HCPCS: 70450; 80048; 80053; 80061; 81003; 82962; 83036; 84443; 84484; 85025; 85027; 85379; 93005; 96374; 97161; 99285; 99406